=== PATIENT | female | born 1945 | race Caucasian/White ===

== ENCOUNTER 2017-08-08 08:00 | Emergency (ER) | payer BC, OTHER ==
[~2017-08-08] VITALS: Ht 157.5 cm; Wt 76.2 kg
[2017-08-08] MEDS ORDERED: CLEOCIN300 MG PO (08:33)
[2017-08-08 09:23] VITALS: BP 119/64
== END 2017-08-08 09:23 | disposition home or self-care (01) ==
LOC: EME 08:00
DX: M79.89 Other specified soft tissue disorders (principal); Z87.891 Personal history of nicotine dependence; W22.8XXA Striking against or struck by other objects, initial encounter
CPT/HCPCS: 99281; 99283